=== PATIENT | male | born 1955 | race Caucasian/White ===

== ENCOUNTER 2019-06-13 11:51 | Day surgery (SDC) | payer OTHER ==
[2019-06-13] VITALS (9 sets, daily range): BP systolic 99–114; BP diastolic 61–71
[~2019-06-13] VITALS: Ht 180.3 cm; Wt 89.9 kg
[2019-06-13] MEDS ORDERED: normal saline 1,000 ML IV SCH (12:20)
[2019-06-13] MEDS ORDERED: diphenhydrAMINE 25mg capsule PO PRN (12:20)
[2019-06-13] MEDS ORDERED: NIT5P TD (12:22)
[2019-06-13] MEDS ORDERED: METO25TA6 PO (12:22)
[2019-06-13] MEDS ORDERED: LOSA1TAB41 PO (12:22)
[2019-06-13] MEDS ORDERED: ASPI-611 PO (12:22)
[2019-06-13 12:44] LABS: BASOPHILS % (AUTO) 0.6 % (0-1); EOSINOPHILS # (AUTO) 0.2 X10'3 (0-0.9); EOSINOPHILS % (AUTO) 2.7 % (0-6); HEMATOCRIT 50.2 % (42.0-52.0); HEMOGLOBIN 17.2 g/dl (14.0-17.9); LYMPHOCYTES # (AUTO) 2.1 X10'3 (1.1-4.8); LYMPHOCYTES % (AUTO) 28.7 % (21-51); MEAN CORPUSCULAR HEMOGLOBIN 31.9 PG (27.0-31.0); MEAN CORPUSCULAR HGB CONC 34.3 g/dL (33.0-36.5); MEAN CORPUSCULAR VOLUME 93.2 FL (78-98); MEAN PLATELET VOLUME 7.2 FL (7.4-10.4); MONOCYTES # (AUTO) 0.8 X10'3 (0-0.9); MONOCYTES % (AUTO) 10.5 % (2-12); NEUTROPHILS # (AUTO) 4.2 X10'3 (1.8-7.7); NEUTROPHILS % (AUTO) 57.5 % (42-75); PLATELET COUNT 292 X10'3 (140-440); RED BLOOD COUNT 5.39 X10'6 (4.70-6.10); RED CELL DISTRIBUTION WIDTH 13.7 % (11.5-14.5); WHITE BLOOD COUNT 7.3 X10'3 (4.5-11.0)
[2019-06-13 12:50] LABS: ANION GAP 9 (8-16); BLOOD UREA NITROGEN 13 MG/DL (7-18); BUN/CREATININE RATIO 15.9 (5.4-32.0); CALCIUM 9.1 MG/DL (8.5-10.1); CHLORIDE 104 MMOL/L (99-107); CREATININE 0.82 MG/DL (0.60-1.10); GLUCOSE 88 MG/DL (70-104); POTASSIUM 3.8 MMOL/L (3.5-5.1); SODIUM 140 MMOL/L (135-145); eGFR > 90 ML/MIN
[2019-06-13] MEDS ORDERED: iohexol 350MG/ML 100ml bottle IV ONE (13:38)
[2019-06-13] MEDS ORDERED: iohexol 350 MG/ML 50ML vial IV ONE (13:38)
[2019-06-13] MEDS ORDERED: midazolam 2 mg/2 ml injection ONE (13:38)
[2019-06-13] MEDS ORDERED: fentaNYL/PF 50MCG/1 ML 2ML syringe ONE (13:38)
[2019-06-13] MEDS ORDERED: LIDOcaine 1% (10mg/ml)w/preservative injection 20ml MDV ONE (13:38)
== END 2019-06-13 18:00 | disposition home or self-care (01) ==
LOC: SSTAY O 11:51
PROVIDERS: ATTEND Internal Medicine Cardiovascular Disease
DX: I49.3 Ventricular premature depolarization (principal); R94.30 Abnormal result of cardiovascular function study, unspecified; I10 Essential (primary) hypertension; J44.9 Chronic obstructive pulmonary disease, unspecified; M19.90 Unspecified osteoarthritis, unspecified site; Z87.11 Personal history of peptic ulcer disease; Z90.49 Acquired absence of other specified parts of digestive tract; Z72.89 Other problems related to lifestyle; F17.210 Nicotine dependence, cigarettes, uncomplicated; Z88.6 Allergy status to analgesic agent
CPT/HCPCS: 36415; 80048; 83735; 85025; 85610; 93005; 93458; 99152; C1769; C1894; J1644; J2001; J2250; J3010; J7030; Q0163; Q9967; A4620; A6258; C1760

== ENCOUNTER 2019-07-21 05:55 | Day surgery (SDC) | payer OTHER ==
[~2019-07-21] VITALS: Ht 180.3 cm; Wt 89.3 kg
[2019-07-21] VITALS (9 sets, daily range): BP systolic 117–142; BP diastolic 74–89
[~2019-07-21 05:55] MED LIST: ASPI-611 PO; LOSA1TAB41 PO; METO25TA6 PO; NIT5P TD
[2019-07-21] MEDS ORDERED: normal saline 1,000 ML IV SCH (06:15)
[2019-07-21] MEDS ORDERED: sodium bicarbonate inj. 75 ML in dextrose 5% water 500ml 500 ML IV ONE (06:15)
[2019-07-21 06:53] LABS: BASOPHILS # (AUTO) 0.1 X10'3 (0-0.2); BASOPHILS % (AUTO) 0.9 % (0-1); EOSINOPHILS # (AUTO) 0.2 X10'3 (0-0.9); EOSINOPHILS % (AUTO) 2.8 % (0-6); HEMATOCRIT 45.9 % (42.0-52.0); HEMOGLOBIN 15.8 g/dl (14.0-17.9); LYMPHOCYTES # (AUTO) 1.8 X10'3 (1.1-4.8); LYMPHOCYTES % (AUTO) 22.7 % (21-51); MEAN CORPUSCULAR HEMOGLOBIN 32.4 PG (27.0-31.0); MEAN CORPUSCULAR HGB CONC 34.5 g/dL (33.0-36.5); MEAN CORPUSCULAR VOLUME 93.7 FL (78-98); MEAN PLATELET VOLUME 7.2 FL (7.4-10.4); MONOCYTES # (AUTO) 0.9 X10'3 (0-0.9); MONOCYTES % (AUTO) 11.5 % (2-12); NEUTROPHILS # (AUTO) 4.9 X10'3 (1.8-7.7); NEUTROPHILS % (AUTO) 62.1 % (42-75); PLATELET COUNT 284 X10'3 (140-440); RED CELL DISTRIBUTION WIDTH 13.3 % (11.5-14.5); WHITE BLOOD COUNT 7.8 X10'3 (4.5-11.0)
[2019-07-21 07:01] LABS: ALBUMIN 3.5 G/DL (3.4-5.0); ANION GAP 6 (8-16); BLOOD UREA NITROGEN 13 MG/DL (7-18); BUN/CREATININE RATIO 14.4 (5.4-32.0); CALCIUM 8.5 MG/DL (8.5-10.1); CHLORIDE 106 MMOL/L (99-107); GLUCOSE 94 MG/DL (70-104); MAGNESIUM 1.8 MG/DL (1.5-2.4); SODIUM 141 MMOL/L (135-145); TOTAL CARBON DIOXIDE 29.1 MMOL/L (24-32); eGFR 85 ML/MIN
[2019-07-21] MEDS ORDERED: ceFAZolin 1GM/D5W- ADD-VANTAGE 50 ML IV ONE (07:32)
[2019-07-21] MEDS ORDERED: LIDOcaine 1% W/epiNEPHrine 1:100,000 20ml vial ONE (07:32)
[2019-07-21] MEDS ORDERED: vancomycin 1,000mg inj ONE (07:32)
[2019-07-21] MEDS ORDERED: fentaNYL/PF 50MCG/1 ML 2ML syringe ONE (07:32)
[2019-07-21] MEDS ORDERED: ceFAZolin 1000mg inj ONE (07:32)
[2019-07-21] MEDS ORDERED: midazolam 2 mg/2 ml injection ONE ×3 (07:32→08:35)
[2019-07-21] MEDS ORDERED: HYDROcodone/acetaminophen 5mg/325mg tablet PO PRN (09:30)
[2019-07-21] MEDS ORDERED: HYDROcodone/acetaminophen 10/325mg tab PO PRN (09:30)
[2019-07-21] MEDS ORDERED: ketorolac tromethamine 15mg/ml inj. IV ONE (09:35)
== END 2019-07-21 11:00 | disposition home or self-care (01) ==
LOC: SSTAY O 05:55
PROVIDERS: ATTEND Internal Medicine Cardiovascular Disease
DX: R55 Syncope and collapse (principal); I49.3 Ventricular premature depolarization; I10 Essential (primary) hypertension; M19.90 Unspecified osteoarthritis, unspecified site; Z87.11 Personal history of peptic ulcer disease; Z90.49 Acquired absence of other specified parts of digestive tract; Z98.890 Other specified postprocedural states; F17.210 Nicotine dependence, cigarettes, uncomplicated; Z72.89 Other problems related to lifestyle; Z88.5 Allergy status to narcotic agent; Z79.899 Other long term (current) drug therapy
CPT/HCPCS: 33208; 36415; 71045; 80048; 83735; 85025; 85610; 93005; 99152; 99153; C1785; C1894; C1898; J0690; J1885; J2250; J3010; J3370; J7030; A4620

== ENCOUNTER 2019-07-23 11:26 | Inpatient (IN) | payer OTHER ==
[~2019-07-23] VITALS: Ht 180.3 cm; Wt 96.4 kg
[2019-07-23] MEDS ORDERED: normal saline 1000ML IV soln IVB ONE (12:15)
[2019-07-23 12:46] LABS: BASOPHILS % (AUTO) 0.3 % (0-1); EOSINOPHILS % (AUTO) 0.1 % (0-6); HEMATOCRIT 43.6 % (42.0-52.0); HEMOGLOBIN 14.8 g/dl (14.0-17.9); LYMPHOCYTES # (AUTO) 1.4 X10'3 (1.1-4.8); LYMPHOCYTES % (AUTO) 10.9 % (21-51); MEAN CORPUSCULAR HEMOGLOBIN 31.7 PG (27.0-31.0); MEAN CORPUSCULAR HGB CONC 33.8 g/dL (33.0-36.5); MEAN CORPUSCULAR VOLUME 93.7 FL (78-98); MEAN PLATELET VOLUME 7.3 FL (7.4-10.4); MONOCYTES # (AUTO) 1.5 X10'3 (0-0.9); MONOCYTES % (AUTO) 11.6 % (2-12); NEUTROPHILS # (AUTO) 9.7 X10'3 (1.8-7.7); NEUTROPHILS % (AUTO) 77.1 % (42-75); PLATELET COUNT 236 X10'3 (140-440); RED BLOOD COUNT 4.66 X10'6 (4.70-6.10); RED CELL DISTRIBUTION WIDTH 13.4 % (11.5-14.5); WHITE BLOOD COUNT 12.6 X10'3 (4.5-11.0)
[2019-07-23 12:48] LABS: CLARITY,URINE CLEAR (Clear); COLOR,URINE YELLOW (Yellow); GLUCOSE, URINE NEGATIVE (Neg); KETONES,URINE NEGATIVE (Neg); LEUKOCYTE ESTERASE ,URINE NEGATIVE (Neg); NITRITES, URINE NEGATIVE (Neg); OCCULT BLOOD,URINE NEGATIVE (Neg); PH,URINE 5.5 (4.8-8.0); PROTEIN,URINE 30 mg/dl (Neg); UROBILINOGEN,URINE 0.2 E.U/dL (0.2-1.0)
[2019-07-23 12:50] LABS: UA COLLECTION TYPE CLN CATCH MIDSTREAM
[2019-07-23 12:54] LABS: BACTERIA,URINE NONE SEEN /HPF (Neg); HYALINE CASTS 0-3 /LPF (NEGATIVE); RBC,URINE 0-2 /HPF (0-2); SQUAMOUS EPITHELIAL CELL,UR NONE SEEN /LPF (FEW); WBC,URINE 0-4 /HPF (0-4)
[2019-07-23 12:59] LABS: ALANINE AMINOTRANSFERASE 45 U/L (12-78); ALBUMIN 3.4 G/DL (3.4-5.0); ALKALINE PHOSPHATASE 89 IU/L (46-116); ANION GAP 11 (8-16); ASPARTATE AMINO TRANSFERASE 30 U/L (10-37); BILIRUBIN,TOTAL 0.8 MG/DL (0.1-1.0); BLOOD UREA NITROGEN 11 MG/DL (7-18); CALCIUM 9.1 MG/DL (8.5-10.1); CHLORIDE 102 MMOL/L (99-107); CREATININE 0.92 MG/DL (0.60-1.10); GLUCOSE 117 MG/DL (70-104); POTASSIUM 4.2 MMOL/L (3.5-5.1); SODIUM 139 MMOL/L (135-145); TOTAL CARBON DIOXIDE 26.2 MMOL/L (24-32); TOTAL PROTEIN 6.9 G/DL (6.4-8.2); eGFR 83 ML/MIN
--- NOTE | 2019-07-23 13:09 | NUR ---
med[employer] rep here changing settings on pts pacemaker.
[2019-07-23] MEDS ORDERED: LOSA1TAB36 PO (14:21)
[2019-07-23] MEDS ORDERED: magnesium Cl slow-release 64mg tablet PO PRN (14:45)
[2019-07-23] MEDS ORDERED: HYDROcodone/acetaminophen 5mg/325mg tablet PO PRN (14:45)
[2019-07-23] MEDS ORDERED: morphine 2 MG/ML inj. syringe IV PRN ×2 (14:45)
[2019-07-23] MEDS ORDERED: potassium Cl 20 mEq SR tablet PO PRN ×2 (14:45)
[2019-07-23] MEDS ORDERED: potassium CL 10mEq/100ml bag 100 ML IV PRN ×2 (14:45)
[2019-07-23] MEDS ORDERED: mag hydrox/Alum hydrox/simeth 30ml oral suspension PO PRN (14:45)
[2019-07-23] MEDS ORDERED: diphenhydrAMINE 25mg capsule PO PRN (14:45)
[2019-07-23] MEDS ORDERED: acetaminophen 325mg tablet PO PRN ×2 (14:45)
[2019-07-23] MEDS ORDERED: ondansetron/PF 4mg/2ml inj IV PRN (14:45)
[2019-07-23] MEDS ORDERED: magnesium 2GM in 50ml NS 50 ML IV PRN (14:45)
[2019-07-23] MEDS ORDERED: magnesium hydroxide 30ml (MOM) UD suspension PO PRN (14:45)
[2019-07-23] MEDS ORDERED: magnesium 4gm in 100ml NS 100 ML IV PRN (14:45)
[2019-07-23] MEDS: K and/or MAG REPLACEMENT MC SCH (14:45)
[2019-07-23] MEDS ORDERED: HYDROcodone/acetaminophen 10/325mg tab PO PRN (14:45)
[2019-07-23] MEDS ORDERED: ipratropium/albuterol 3ml nebule NEB PRN (16:10)
--- NOTE | 2019-07-23 16:20 | NUR ---
CHANGE NOTED IN RHYTHM PATIENT WAS SR IN 80S BPM UPON ADMISSION, NOW 120S-140S AFIB. EKG DONE, READ IN ER BY DR. LOCO- NO STEMI. PATIENT IS ASYMPTOMATIC. BP 116/77, 93% ON ROOM AIR.
--- NOTE | 2019-07-23 16:41 | NUR ---
PAGER ID: [phone] MESSAGE: Dr. Garcia, our new pt, Franko Brannon in 307 has had a change in his rhythm. His rate increased from the mid 80's to the 120's to 140's. We obtained an EKG, and trop's were already being done. Could you come look at this? Art, [phone]
[2019-07-23 16:42] VITALS: BP 117/78
--- NOTE | 2019-07-23 16:54 | NUR ---
PAGED DR. MENDOZA HOSPITALIST "DR. MENDOZA-our new pt, Franko Graceangel luis in 307 has had a change in his rhythm. His rate increased from the mid 80's to the 120's to 140's. We obtained an EKG, and trop's were already being done. Could you come look at this? Art, [phone]"
[2019-07-23 16:59] VITALS: BP 113/74
[2019-07-23] MEDS: normal saline 1000ml 1,000 ML IV SCH (17:00)
--- NOTE | 2019-07-23 17:06 | NUR ---
PAGED DR. MENDOZA ABOUT RAPID AFIB "RE; NEW ADMIT IN 307 IS IN RAPID AFIB- 120-140S. PLEASE CALL TO ADDRESS. THANK YOU, TEOFILO GOVEA [phone]"
[2019-07-23] MEDS ORDERED: diltiazem-NS 100mg/100ml 100 ML IV SCH (17:10)
--- NOTE | 2019-07-23 17:10 | NUR ---
LAYLA RN SPOKE WITH DR. MENDOZA ABOUT PATIENT'S RAPID AFIB- RECEIVED ORDER FOR CARDIZEM DRIP PER PCU PROTOCOL TO START NOW AND TO CALL DR. CLEVELAND WITH PATIENT'S RHYTHM INFORMATION.
--- NOTE | 2019-07-23 17:12 | NUR ---
CALLED DR. CLEVELAND ABOUT RAPID AFIB RECEIVED ORDER FOR 5000 UNITS OF IV HEPARIN NOW, AND DR. CLEVELAND SAID HE WILL COME SEE PATIENT TO POSSIBLY CARDIOVERT HIM AT 1800. PT CONTINUES TO BE ASYMPTOMATIC, AND BP- 113/74
[2019-07-23] MEDS ORDERED: heparin 10,000 units/1 ML INJ IV ONE (17:15)
--- NOTE | 2019-07-23 17:34 | NUR ---
Pt placed on pacer pads in anticipation of cardioversion, cardizem gtt started per order and heparin bolus administered.
--- NOTE | 2019-07-23 17:46 | NUR ---
Unable to do physical assessment due to change in patient condition.
[2019-07-23 18:00] VITALS: BP 97/70
[2019-07-23] MEDS ORDERED: MIDAZolam 5mg/ml 2ml vial IV ONE (18:15)
[2019-07-23] MEDS ORDERED: fentaNYL/PF 50MCG/1 ML 2ML syringe IV ONE (18:15)
[2019-07-23] MEDS ORDERED: MIDAZolam 1mg/ml 10ml vial IV ONE (18:20)
[2019-07-23 18:30] VITALS: BP 100/73
--- NOTE | 2019-07-23 18:37 | NUR ---
Problems reprioritized. Patient report given, questions answered & plan of care reviewed with Zoë.
--- NOTE | 2019-07-23 18:43 | NUR ---
Attempt to cardiovert with Dr. Krueger unsuccessful. Left over meds waisted
[2019-07-23] MEDS ORDERED: flecainide 50mg tablet PO ONE (19:00)
[2019-07-23] MEDS: heparin, porcine 5000 units/ml vial SQ SCH (19:41)
[2019-07-23] MEDS: metoprolol tartrate 25mg tablet PO SCH (19:43)
[2019-07-23 20:00] VITALS: BP 102/65
[2019-07-23 22:00] VITALS: BP 87/61
--- NOTE | 2019-07-23 22:05 | NUR ---
PAGER ID: [phone] MESSAGE: [phone]: Clovis MORALES converted from AFIB RVR to SR at 2145, Cardizem gtt 5ml/HR BP trending down currently 87/61 (72) flecainimide 300mg and metoprolol 25 mg given. Please review and advise. Sharda [phone]
--- NOTE | 2019-07-23 23:10 | NUR ---
Called Dr. Grove to inform him patient converted to SR at 2144, hospitalist had ordered cardizem gtt held due to patient was symptomatic hypotension, Dr Grove indicated pacer interrogation and lead revision will still occur i07/24/19 am, ptocveed with consents and orders as planned.
[2019-07-24] VITALS (9 sets, daily range): BP systolic 94–146; BP diastolic 69–94
[2019-07-24] MEDS ORDERED: metoprolol tartrate 1mg/ml inj IV PRN (01:15)
[2019-07-24 05:05] LABS: BASOPHILS % (AUTO) 0.4 % (0-1); EOSINOPHILS % (AUTO) 0.4 % (0-6); HEMOGLOBIN 13.7 g/dl (14.0-17.9); LYMPHOCYTES # (AUTO) 2.1 X10'3 (1.1-4.8); LYMPHOCYTES % (AUTO) 19.3 % (21-51); MEAN CORPUSCULAR HGB CONC 34.3 g/dL (33.0-36.5); MEAN CORPUSCULAR VOLUME 93.3 FL (78-98); MEAN PLATELET VOLUME 7.3 FL (7.4-10.4); MONOCYTES # (AUTO) 1.6 X10'3 (0-0.9); MONOCYTES % (AUTO) 15.1 % (2-12); NEUTROPHILS # (AUTO) 6.9 X10'3 (1.8-7.7); NEUTROPHILS % (AUTO) 64.8 % (42-75); PLATELET COUNT 228 X10'3 (140-440); RED BLOOD COUNT 4.29 X10'6 (4.70-6.10); RED CELL DISTRIBUTION WIDTH 13.3 % (11.5-14.5); WHITE BLOOD COUNT 10.6 X10'3 (4.5-11.0)
[2019-07-24 05:21] LABS: ALANINE AMINOTRANSFERASE 57 U/L (12-78); ALBUMIN/GLOBULIN RATIO 0.9 (1.1-1.5); ALKALINE PHOSPHATASE 89 IU/L (46-116); ANION GAP 7 (8-16); ASPARTATE AMINO TRANSFERASE 31 U/L (10-37); BILIRUBIN,TOTAL 0.7 MG/DL (0.1-1.0); BLOOD UREA NITROGEN 14 MG/DL (7-18); BUN/CREATININE RATIO 18.4 (5.4-32.0); CALCIUM 8.5 MG/DL (8.5-10.1); CHLORIDE 105 MMOL/L (99-107); CREATININE 0.76 MG/DL (0.60-1.10); GLUCOSE 115 MG/DL (70-104); MAGNESIUM 1.9 MG/DL (1.5-2.4); PHOSPHORUS 2.7 MG/DL (2.3-4.5); SODIUM 138 MMOL/L (135-145); TOTAL CARBON DIOXIDE 25.6 MMOL/L (24-32); TOTAL PROTEIN 6.4 G/DL (6.4-8.2); eGFR > 90 ML/MIN
--- NOTE | 2019-07-24 06:30 | NUR ---
Patient in room MED 307. I have received report from Sharda FRANKLIN and had the opportunity to ask questions and assume patient care.
--- NOTE | 2019-07-24 06:39 | NUR ---
Problems reprioritized. Patient report given, questions answered & plan of care reviewed with Tiara FRANKLIN.
[2019-07-24] MEDS: K and/or MAG REPLACEMENT MC SCH (08:00)
[2019-07-24] MEDS ORDERED: flecainide 50mg tablet PO SCH (08:00)
[2019-07-24] MEDS ORDERED: losartan 50mg tablet PO SCH (08:00)
[2019-07-24] MEDS ORDERED: aspirin 81mg tablet.DR PO SCH (08:00)
[2019-07-24] MEDS ORDERED: HYDROchlorothiazide 12.5mg capsule PO SCH (08:00)
[2019-07-24] MEDS: heparin, porcine 5000 units/ml vial SQ SCH (08:00)
[2019-07-24] MEDS: metoprolol tartrate 25mg tablet PO SCH (08:54)
[2019-07-24] MEDS ORDERED: vancomycin/NS 1 GM ADD-VANTAGE 250 ML X 1 DOSE IV ONE (10:00)
--- NOTE | 2019-07-24 11:15 | NUR ---
Patient picked up for pacemaker revision at this time.
[2019-07-24] MEDS ORDERED: ceFAZolin 1000mg inj ONE (11:17)
[2019-07-24] MEDS ORDERED: LIDOcaine 1% W/epiNEPHrine 1:100,000 20ml vial ONE (11:17)
[2019-07-24] MEDS ORDERED: midazolam 2 mg/2 ml injection ONE ×2 (11:17→11:38)
[2019-07-24] MEDS ORDERED: ceFAZolin 1GM/D5W- ADD-VANTAGE 50 ML IV ONE (11:17)
[2019-07-24] MEDS ORDERED: fentaNYL/PF 50MCG/1 ML 2ML syringe ONE (11:17)
[2019-07-24] MEDS ORDERED: vancomycin 1,000mg inj ONE (11:32)
--- NOTE | 2019-07-24 12:13 | NUR ---
RECEIVED REPORT FROM ELECTRIC SYSTEM OPERATOR, PATIENT IS RETURNING POST PACER REVISION. WILL MAKE KELLY AWARE OF RETURN. PLAN TO DISCHARGE TODAY OR TOMORROW.
--- NOTE | 2019-07-24 12:26 | NUR ---
JUST ARRIVED BACK FROM HUMIDIFIER ATTENDANT.
[2019-07-24] MEDS ORDERED: TAM50T PO (12:46)
--- NOTE | 2019-07-24 12:47 | NUR ---
Plans to discharge after IV ANCEF ABX infused.
[2019-07-24] MEDS ORDERED: normal saline 1000ml 1,000 ML IV SCH (12:50)
[2019-07-24] MEDS ORDERED: HYDROcodone/acetaminophen 10/325mg tab PO PRN (12:50)
[2019-07-24] MEDS ORDERED: ketorolac tromethamine 15mg/ml inj. IV ONE (12:50)
[2019-07-24] MEDS ORDERED: HYDROcodone/acetaminophen 5mg/325mg tablet PO PRN (12:50)
[2019-07-24] MEDS ORDERED: cefazolin/dext.iso 2gm/100ml 100 ML IV ONE (13:00)
[2019-07-24] MEDS ORDERED: cefazolin/dext.iso 2gm/50ml 50 ML IV ONE (13:00)
[2019-07-24] MEDS: normal saline 1000ml 1,000 ML IV SCH (13:18)
[2019-07-24] MEDS ORDERED: celeCOXIB 100mg capsule PO STA (13:34)
--- NOTE | 2019-07-24 14:12 | NUR ---
PATIENT BACK IN AFIB IN THE S CALLED DR. CLEVELAND AND INFORMED HIM OF RHYTHM CHANGE AND RATE. INSTRUCTED TO GIVE 100MG FLECAINIDE ONCE NOW BEFORE THE PATIENT GOES HOME. PATIENT WILL BE ON 100MG FLECAINIDE BID WHICH HAS BEEN CALLED INTO PREFERRED PHARMACY. PATIENT AWARE HE WILL NOT TAKE A DOSE TONIGHT BECAUSE HE IS TAKING IT NOW. PATIENT IS ASYMPTOMATIC.
[2019-07-24] MEDS ORDERED: flecainide 50mg tablet PO ONE (14:15)
[2019-07-24] MEDS ORDERED: lactobacillus rhamnosus 10,000 MMU CELLS/CAPSULE PO SCH (20:00)
== END 2019-07-24 14:30 | disposition home or self-care (01) | DRG 261 ==
LOC: ER 11:27 → MED 3N 15:23
PROVIDERS: ADMIT Family Medicine; ATTEND Family Medicine
PROC: 02WA3MZ Revision of Cardiac Lead in Heart, Percutaneous Approach (ICD-10-PCS; principal; 2019-07-24)
DX: T82.7XXA Infection and inflammatory reaction due to other cardiac and vascular devices, implants and grafts, initial encounter (principal); I31.9 Disease of pericardium, unspecified; F10.10 Alcohol abuse, uncomplicated; I95.9 Hypotension, unspecified; B99.8 Other infectious disease; I49.5 Sick sinus syndrome; Y83.8 Other surgical procedures as the cause of abnormal reaction of the patient, or of later complication, without mention of misadventure at the time of the procedure; F17.200 Nicotine dependence, unspecified, uncomplicated; I11.0 Hypertensive heart disease with heart failure; J44.9 Chronic obstructive pulmonary disease, unspecified; Z86.711 Personal history of pulmonary embolism; Z71.6 Tobacco abuse counseling; Z79.82 Long term (current) use of aspirin; Z95.0 Presence of cardiac pacemaker; Z90.49 Acquired absence of other specified parts of digestive tract; Z88.6 Allergy status to analgesic agent; Y92.89 Other specified places as the place of occurrence of the external cause
CPT/HCPCS: 33218; 36415; 71045; 80053; 81001; 83605; 83735; 83880; 84100; 84145; 84484; 85025; 86885; 86900; 86901; 87040; 87081; 93005; 94760; 99153; 99285; A4620; G0378; J0690; J1644; J1885; J2250; J3010; J3370; J3490; J7030

== ENCOUNTER 2019-09-07 06:14 | Day surgery (SDC) | payer OTHER ==
[~2019-09-07] VITALS: Ht 180.3 cm; Wt 89.7 kg
[~2019-09-07 06:14] MED LIST changes: +LOSA1TAB36 PO; -LOSA1TAB41 PO; -NIT5P TD; +TAM50T PO
[2019-09-07] MEDS ORDERED: normal saline 1000ml 1,000 ML IV SCH (06:30)
[2019-09-07 06:40] VITALS: BP 117/74
[2019-09-07 06:46] LABS: BASOPHILS # (AUTO) 0.1 X10'3 (0-0.2); BASOPHILS % (AUTO) 0.7 % (0-1); EOSINOPHILS # (AUTO) 0.4 X10'3 (0-0.9); HEMATOCRIT 47.4 % (42.0-52.0); HEMOGLOBIN 16.3 g/dl (14.0-17.9); LYMPHOCYTES # (AUTO) 1.8 X10'3 (1.1-4.8); LYMPHOCYTES % (AUTO) 23.9 % (21-51); MEAN CORPUSCULAR HEMOGLOBIN 31.5 PG (27.0-31.0); MEAN CORPUSCULAR HGB CONC 34.4 g/dL (33.0-36.5); MEAN CORPUSCULAR VOLUME 91.4 FL (78-98); MEAN PLATELET VOLUME 6.9 FL (7.4-10.4); MONOCYTES # (AUTO) 0.9 X10'3 (0-0.9); NEUTROPHILS # (AUTO) 4.3 X10'3 (1.8-7.7); NEUTROPHILS % (AUTO) 58.4 % (42-75); PLATELET COUNT 301 X10'3 (140-440); RED BLOOD COUNT 5.18 X10'6 (4.70-6.10); RED CELL DISTRIBUTION WIDTH 13.3 % (11.5-14.5); WHITE BLOOD COUNT 7.4 X10'3 (4.5-11.0)
[2019-09-07] MEDS ORDERED: FLEC100T2 PO (06:48)
[2019-09-07] MEDS ORDERED: CLIN300C3 PO (06:48)
[2019-09-07 06:57] LABS: ALBUMIN 3.8 G/DL (3.4-5.0); ANION GAP 8 (8-16); BLOOD UREA NITROGEN 12 MG/DL (7-18); BUN/CREATININE RATIO 14.8 (5.4-32.0); CALCIUM 8.9 MG/DL (8.5-10.1); CHLORIDE 102 MMOL/L (99-107); CREATININE 0.81 MG/DL (0.60-1.10); GLUCOSE 98 MG/DL (70-104); MAGNESIUM 1.8 MG/DL (1.5-2.4); POTASSIUM 4.1 MMOL/L (3.5-5.1); SODIUM 139 MMOL/L (135-145); TOTAL CARBON DIOXIDE 28.8 MMOL/L (24-32); eGFR > 90 ML/MIN
[2019-09-07] MEDS ORDERED: vancomycin 1,000mg inj ONE (07:46)
[2019-09-07] MEDS ORDERED: ceFAZolin 1000mg inj ONE (07:46)
[2019-09-07] MEDS ORDERED: ceFAZolin 1GM/D5W- ADD-VANTAGE 50 ML IV ONE (07:46)
[2019-09-07] MEDS ORDERED: LIDOcaine 1% W/epiNEPHrine 1:100,000 20ml vial ONE (07:46)
[2019-09-07] MEDS ORDERED: proCHLORperazine 10 MG/2 ml inj ONE (08:04)
[2019-09-07] MEDS ORDERED: midazolam 2 mg/2 ml injection ONE ×3 (08:04→08:40)
[2019-09-07] MEDS ORDERED: fentaNYL/PF 50MCG/1 ML 2ML syringe ONE ×3 (08:04→08:44)
[2019-09-07 09:15] VITALS: BP 123/75
[2019-09-07 09:30] VITALS: BP 123/68
[2019-09-07 09:45] VITALS: BP 106/75
--- NOTE | 2019-09-07 09:51 | NUR ---
dressing over incision site reinforced with 4x4 gauze and foam tape. Pt told to keep it on 2 days. do not remove dsg below.
[2019-09-07 10:00] VITALS: BP 120/66
[2019-09-07 10:30] VITALS: BP 112/67
== END 2019-09-07 11:00 | disposition home or self-care (01) ==
LOC: SSTAY O 06:14
PROVIDERS: ATTEND Internal Medicine Cardiovascular Disease
DX: T82.7XXA Infection and inflammatory reaction due to other cardiac and vascular devices, implants and grafts, initial encounter (principal); I10 Essential (primary) hypertension; I48.0 Paroxysmal atrial fibrillation; M19.90 Unspecified osteoarthritis, unspecified site; F17.210 Nicotine dependence, cigarettes, uncomplicated; Z79.01 Long term (current) use of anticoagulants; Z79.899 Other long term (current) drug therapy; Z79.82 Long term (current) use of aspirin; Z86.010 Personal history of colon polyps; Z87.11 Personal history of peptic ulcer disease; Z90.49 Acquired absence of other specified parts of digestive tract; Z98.890 Other specified postprocedural states; Z72.89 Other problems related to lifestyle; Z88.5 Allergy status to narcotic agent; Y83.8 Other surgical procedures as the cause of abnormal reaction of the patient, or of later complication, without mention of misadventure at the time of the procedure; Y92.89 Other specified places as the place of occurrence of the external cause
CPT/HCPCS: 33233; 33235; 36415; 80048; 83735; 85025; 85610; 87070; 87077; 87186; 93005; 99152; 99153; J0690; J0780; J2250; J3010; J3370; J7030

== ENCOUNTER 2021-05-15 07:12 | Outpatient (CLI) | payer MEDICARE, BC ==
[~2021-05-15] VITALS: Ht 180.3 cm; Wt 108.0 kg
[~2021-05-15 07:12] MED LIST changes: +CLIN300C3 PO; +FLEC100T2 PO; +LOP25T PO; -METO25TA6 PO; -TAM50T PO
[2021-05-15] MEDS ORDERED: normal saline 500ml IV soln 500 ML IV ONE (07:45)
[2021-05-15] MEDS ORDERED: aminophylline 250mg/10ml inj. IV PRN (07:45)
[2021-05-15] MEDS ORDERED: regadenoson 0.4mg/5ml syringe IV ONE (07:45)
[2021-05-15] MEDS ORDERED: nitroGLYCERIN 0.4mg SUBLingual tab SL PRN (07:45)
[2021-05-15 09:27] VITALS: BP 130/80
[2021-05-15 09:42] VITALS: BP 169/73
[2021-05-15 09:43] VITALS: BP 139/71
[2021-05-15 09:44] VITALS: BP 121/68
[2021-05-15 09:45] VITALS: BP 125/74
[2021-05-15 09:46] VITALS: BP 113/71
== END 2021-05-15 23:59 | disposition home or self-care (01) ==
LOC: RAD 07:12
PROVIDERS: ATTEND Internal Medicine Cardiovascular Disease
DX: I08.0 Rheumatic disorders of both mitral and aortic valves (principal); I25.10 Atherosclerotic heart disease of native coronary artery without angina pectoris; I48.0 Paroxysmal atrial fibrillation
CPT/HCPCS: 78452; 93017; 93306; A9500; J2785; J7040